=== PATIENT | male | born 1940 | race Caucasian/White ===

== ENCOUNTER 2016-09-26 14:34 | Outpatient (CLI) | payer MEDICARE ==
--- NOTE | 2016-09-26 19:56 | RAD ---
CHEST TWO VIEWS: 09/26/16 Comparison is made with the 01/21/16 study. The heart size is stable. There are no congestive findings or pleural effusions. The lungs are clear , though slightly hyperexpanded. Mild degenerative changes are seen in the spine. The trachea deviat es slightly as it crosses the aorta just as before. A right paratracheal density is most likely a pr ominent great vessel and it has not changed. IMPRESSION: No acute findings. POS: HOME
== END 2016-09-26 14:35 | disposition home or self-care (01) ==
LOC: BURRAD 14:34
PROVIDERS: ATTEND Nurse Practitioner
DX: J10.1 Influenza due to other identified influenza virus with other respiratory manifestations (principal)
CPT/HCPCS: 71020